=== PATIENT | male | born 1995 | race Caucasian/White ===

== ENCOUNTER 2016-09-10 20:59 | Emergency (ER) | payer OTHER ==
[~2016-09-10] VITALS: Ht 175.3 cm; Wt 59.1 kg
[~2016-09-10 20:59] MED LIST: ACET325T96 PO; AMPH15CA7 PO; FLUT0.0529 NAE
[2016-09-10 21:09] VITALS: TEMP 36.4; Ht 175.3 cm; Wt 59.1 kg
[2016-09-10] MEDS ORDERED: CEPHALEXIN MONOHYDRATE 250 MG CAP PO ONE (21:45)
[2016-09-10] MEDS ORDERED: CHLORHEXIDINE GLUCONATE 0.12% 480 ML MT ONE (21:45)
[2016-09-10] MEDS ORDERED: FLUT0.15 NAE (21:45)
[2016-09-10] MEDS ORDERED: CEPHALEXIN 500MG HOME PACK 1 EA BTL PO ONE (21:45)
[2016-09-10] MEDS ORDERED: AMPH10TA2 PO (21:45)
--- NOTE | 2016-09-10 22:13 | DIAGNOSTIC IMAGING REPORT ---
CT SCAN OF THE FACIAL BONES WITHOUT IV CONTRAST CLINICAL HISTORY: Left jaw injury. COMPARISON STUDY: No priors. TECHNIQUE: High-resolution CT scan of the facial bones is performed. Images are reviewed in the axial, sagittal, and coronal planes. IV contrast was not administered for this examination. CT DOSE: 616.95 mGy.cm FINDINGS: The skeletal structures are well mineralized. There is no evidence of facial bone fracture. The bony orbits are intact and the orbital contents are within normal limits. The zygomatic arches, nasal bones, and pterygoid plates are preserved. The maxilla and mandible are intact. The temporomandibular joints are maintained. There are no layering blood products within the paranasal sinuses. There is trace mucosal thickening within the left maxillary antrum. The remaining paranasal sinuses and mastoid air cells are clear. The visualized calvarium and upper cervical spine are maintained. Partially imaged brain parenchyma is within normal limits. IMPRESSION: There is no evidence of facial bone fracture. Electronically signed by: Sherif Mckinnon M.D. 09/10/2016 10:12 PM Dictated Date/Time: 09/10/2016 10:06 PM
--- NOTE | 2016-09-10 22:16 | EMERGENCY ROOM VISIT NOTE ---
History First contact with patient: 21:37 Chief Complaint: BLEEDING Stated Complaint: HOLE IN TONGUE, BLEEDING Nursing Triage Summary: bit tongue playing soccer History of Present Illness The patient is a 21 year old male who presents to the Emergency Department by private vehicle for evaluation of a laceration to the tongue and LEFT-sided tongue pain after an injury while playing soccer. He reports that he was jumping to head a ball when he collided with another player. He did not lose consciousness. He bit his tongue. There was moderate bleeding initially. He complains of pain to the LEFT-sided jaw with chewing. He rates his current discomfort as 3/10. He denies any headaches, dizziness, lightheadedness, nausea , vomiting, or neck pain/stiffness. The patient denies any numbness or tingling into the distal extremities. He rates his current discomfort as a 3/ 10. He is tried nothing for his symptoms to this point. The patient's tetanus status is up-to-date. Review of Systems A complete 10-point Review of Systems was discussed with the patient, with pertinent positives and negatives listed in the History of Present Illness. All remaining Review of Systems questions can be considered negative unless otherwise specified. Social History Smoking Status: Current Some Day Smoker Smokeless Tobacco Use: No Alcohol Use: occasionally Drug Use: none Marital Status: single Housing Status: lives with roommate Occupation Status: [employer] student Current/Historical Medications Scheduled Cephalexin Monohydrate (Keflex), 500 MG PO TID Fluticasone Propionate (Nasal) (Flonase Allergy Relief), 2 SPRAYS JAMES DAILY Scheduled PRN Amphetamine-Dextroamphetamine 10MG (Adderall 10MG), 10 MG PO TID PRN for Focus Allergies Coded Allergies: Amoxicillin (Verified Allergy, Unknown, rash, 05/24/14) Clavulanic Acid (Verified Allergy, Unknown, rash, 05/24/14) Sulfa Antibiotics (Verified Allergy, Unknown, Unknown, 09/10/16) Physical Exam Vital Signs Date Time Temp Pulse Resp B/P Pulse Ox O2 Delivery O2 Flow Rate FiO2 09/10/16 22:51 86 18 125/67 98 09/10/16 21:09 36.4 78 18 132/78 98 Room Air Pain Rating (0-10): 3 Physical Exam VITAL SIGNS - Vital signs and nursing notes were reviewed. GENERAL - 21-year-old male appearing his stated age. Communicates well with provider and answers questions appropriately. HEAD - Normocephalic, Atraumatic. No Akhtar's Sign or Raccoon's Eyes. No depressed skull fractures palpable. Tenderness to palpation to the LEFT-sided TMJ area. EYES - PERRL with EOMI bilaterally. Without subconjunctival hemorrhage. Palpebral conjunctiva pink and moist with no injection. EARS - No deformities of external structures noted on gross examination bilaterally. No hemotympanum present. No tympanic perforation noted. Handle of malleus, umbo, cone of light, pars tensa/flaccid all easily visualized. NOSE - Midline and without cyanosis. No epistaxis or clear watery discharge noted. Septum midline without deviation. No septal hematoma noted. No overlying ecchymosis noted. MOUTH/OROPHARYNX - Without perioral cyanosis. Tongue midline with equal elevation of palate bilaterally. Small 1.0 cm laceration noted to the midportion of the tongue. The edges gape apart with traction. No active bleeding appreciated. No deep structures appreciated. Full range of motion of the tongue. No blood noted in the oropharynx. No tonsillar hypertrophy, erythema, or exudates noted. No dental fractures noted. NECK - FROM assessed. No nuchal rigidity. No tenderness to palpation over the cervical spinous processes. No cervical paraspinal muscle tenderness noted. NEUROLOGIC - Cranial nerves II through XII grossly intact. Sensory intact to light touch throughout. PSYCH - A&Ox3 and cooperates fully with examiner. Pt is very pleasant and interacts well with examiner. Medical Decision & Procedures ER Provider Diagnostic Interpretation: Radiological imaging and reports were reviewed by myself. Radiologist's Interpretation as follows: CT SCAN OF THE FACIAL BONES WITHOUT IV CONTRAST CLINICAL HISTORY: Left jaw injury. COMPARISON STUDY: No priors. TECHNIQUE: High-resolution CT scan of the facial bones is performed. Images are reviewed in the axial, sagittal, and coronal planes. IV contrast was not administered for this examination. CT DOSE: 616.95 mGy.cm FINDINGS: The skeletal structures are well mineralized. There is no evidence of facial bone fracture. The bony orbits are intact and the orbital contents are within normal limits. The zygomatic arches, nasal bones, and pterygoid plates are preserved. The maxilla and mandible are intact. The temporomandibular joints are maintained. There are no layering blood products within the paranasal sinuses. There is trace mucosal thickening within the left maxillary antrum. The remaining paranasal sinuses and mastoid air cells are clear. The visualized calvarium and upper cervical spine are maintained. Partially imaged brain parenchyma is within normal limits. IMPRESSION: There is no evidence of facial bone fracture. Medications Administered Medications (Trade) Dose Ordered Sig/Lana Route Start Time Stop Time Status Last Admin Dose Admin Cephalexin Monohydrate (Keflex Cap) 500 mg NOW ONCE PO 09/10/16 21:45 09/10/16 21:48 DC 09/10/16 21:45 500 MG Cephalexin Monohydrate (Keflex 500MG Home Pack) 1 homepack NOW ONCE PO 09/10/16 21:45 09/10/16 21:48 DC 09/10/16 21:45 1 HOMEPACK Chlorhexidine Gluconate (Peridex Oral Soln) 15 ml NOW ONCE MT 09/10/16 21:45 09/10/16 21:48 DC 09/10/16 21:45 15 ML ED Course Patient was seen and evaluated by myself. Patient received initial dose of Keflex and parents mouthwash in the emergency department. CT the patient bones was obtained. Imaging results as above. Imaging results were reviewed with the patient who acknowledges understanding. He was educated on worrisome symptoms for return visit to the emergency department. Patient discharged home in good condition. Medical Decision Given the patient's presentation and stated complaints, I did elect to perform the above-mentioned workup. The patient presents with a tongue laceration and pain to the LEFT sided jaw. The laceration does gape apart, however I do not feel that intervention is warranted or necessary in this situation. I feel that closure would be more detrimental than secondary intent closure. The patient was covered with Peridex mouthwash and Keflex as he is allergic to amoxicillin. He will follow-up with [facility] or return for changing/worsening symptoms. Patient discharged home in good condition. In the evaluation and treatment of this patient, the following differential diagnoses were considered: Periapical Abscess, Osteonecrosis of the Jaw, Dental Fracture, Dental Caries, Chad's Angina, Vincent's Angina, Facial Cellulitis. Impression Primary Impression: Laceration of tongue Additional Impression: Jaw pain Departure Information Dispostion Home / Self-Care Condition GOOD Prescriptions Cephalexin Monohydrate (Keflex) 500 Mg Cap 500 MG PO TID for 5 Days, #15 CAP Prov: Ibrahima Carpio, GUILLERMO 09/10/16 Referrals [facility] (PCP) Patient Instructions My [facility] Additional Instructions You've been seen in the emergency department today for a laceration to the tongue. You were prescribed Keflex to be taken as prescribed. This is an antibiotic. All antibiotics have the potential to cause diarrhea. Stop this medication and contact a medical provider if you were to develop any significant adverse side effects including: wheezing, shortness of breath, passing out, vomiting, or a diffuse rash. Always take antibiotics as directed and COMPLETE the ENTIRE course regardless of the improvement of your symptoms. Use the Peridex 3 times daily. For pain control, you can use the following [id number] medicines (if >12 yo): - Regular strength (325mg/tab) Tylenol (acetaminophen) 2 tabs every 4-6 hours as needed. Do not exceed 12 tablets in a 24 hour period. Avoid taking more than 4 grams (4000 mg) of Tylenol per day. This includes any other sources of acetaminophen you may take on a regular basis. - Regular strength (200 mg/tab) Advil (ibuprofen) 1-2 tabs every 4-6 hours as needed. Do not exceed a dose of 3200 mg per day. Return for any changing or worsening symptoms. Problem Qualifiers Primary Impression: Laceration of tongue Encounter type: initial encounter Qualified Codes: S01.512A - Laceration without foreign body of oral cavity, initial encounter
[2016-09-10] MEDS ORDERED: CEPH500C PO (22:23)
[2016-09-10 22:51] VITALS: BP 125/67; PULSE 86; O2SAT 98
== END 2016-09-10 22:51 | disposition home or self-care (01) ==
LOC: C.EDB 21:01 → C.EDD 22:51
DX: S01.512A Laceration without foreign body of oral cavity, initial encounter (principal); R68.84 Jaw pain; W50.0XXA Accidental hit or strike by another person, initial encounter; Y93.66 Activity, soccer; Y92.322 Soccer field as the place of occurrence of the external cause; F17.210 Nicotine dependence, cigarettes, uncomplicated